=== PATIENT | female | born 2000 | race Hispanic/Latino ===

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

== ENCOUNTER 2019-01-09 18:45 | Emergency (ER) | payer MEDICAID, OTHER ==
[2019-01-09 19:50] VITALS: TEMP 99.4
[2019-01-09] MEDS ORDERED: Sodium Chloride 0.9% 1,000 ML IV STA (20:01)
[2019-01-09 20:22] VITALS: BP 126/78; PULSE 112; RESP 18
--- NOTE | 2019-01-09 20:23 | ED PDOC ---
HPI: Chest Pain Time Seen by Provider: 01/09/19 19:19 Chief Complaint (Nursing): Palpitations Chief Complaint (Provider): Chest Pain and lightheadedness History Per: Patient History/Exam Limitations: no limitations Onset/Duration Of Symptoms: Days Current Symptoms Are (Timing): Still Present Additional Complaint(s): 18 y/o female with a PMHx of DM and Asthma presents to the ED for evaluation of chest pain and lightheadedness. Patient states symptoms have been ongoing for one month but worsened last night. Patient reports of developing a fever, chills and body aches last night as well. At this time, patient denies feeling palpitations, cough, cold, rhinorrhea and sore throat. Patient reports she has not had her period in one year and that she is irregular. Patient states she has not followed up with a [employer]. Patient notes she was told in the past by her physician specialist she was just irregular. PMD: no provider Against Medical Advice - AMA Patient Left Against Medical Advice: The patient declines admission to the hospital and wishes to leave the Emergency Department. This action is against my medical advice. This decision was made with informed refusal. The patient was told that admission to the hospital is necessary. Explanation of the reasons why were discussed. The risks of leaving were explained to the patient and include, but are not limited to, worsening of known or currently unknown conditions, permanent disability and from undiagnosed or untreated conditions. The patient has the capacity to make this informed decision and understands my explanation of the current medical problem and risks of leaving. The patient voluntarily accepts these risks and signed an AMA form documenting our conversation. The patient was given the opportunity to ask questions and reconsider. The patient was encouraged to return to the Emergency Department at any time for further care. Past Medical History Reviewed: Historical Data, Nursing Documentation, Vital Signs Vital Signs: Last Vital Signs Temp 99.4 F 01/09/19 19:49 Pulse 144 H 01/09/19 18:57 Resp 20 01/09/19 18:57 BP 126/92 H 01/09/19 18:57 Pulse Ox 99 01/09/19 18:57 - Medical History PMH: No Chronic Diseases Denies: Diabetes, Hepatitis, HIV, HTN, Seizures, Sexually Transmitted Disease - Surgical History Other surgeries: Colposcopy and dental surgery - Family History Family History: States: Unknown Family Hx - Social History Current smoker - smoking cessation education provided: No Alcohol: None Drugs: Other (marijuana) - Immunization History Hx Tetanus Toxoid Vaccination: Yes - Allergies Allergies/Adverse Reactions: Allergies Allergy/AdvReac Type Severity Reaction Status Date / Time No Known Allergies Allergy Verified 12/04/17 14:38 Review of Systems ROS Statement: Except As Marked, All Systems Reviewed And Found Negative Constitutional: Positive for: Fever, Chills, Other (body aches) ENT: Negative for: Nose Discharge, Throat Pain Cardiovascular: Positive for: Chest Pain. Negative for: Palpitations Respiratory: Negative for: Cough Genitourinary Female: Positive for: Other (irregular menstruation) Neurological: Positive for: Other (lightheadedness) Physical Exam - Reviewed Nursing Documentation Reviewed: Yes Vital Signs Reviewed: Yes - Physical Exam Appears: Positive for: No Acute Distress Head Exam: Positive for: NORMAL INSPECTION (face signs of hirsutism) Skin: Positive for: Warm, Dry Eye Exam: Positive for: EOMI, PERRL ENT: Positive for: Other (dry mucous membranes) Neck: Positive for: Painless ROM, Supple Cardiovascular/Chest: Positive for: Tachycardia (with regular rhythm) Respiratory: Positive for: Normal Breath Sounds. Negative for: Respiratory Distress Gastrointestinal/Abdominal: Positive for: Soft. Negative for: Tenderness Back: Positive for: Normal Inspection. Negative for: Decreased ROM Extremity: Positive for: Normal ROM. Negative for: Deformity Lymphatic: Negative for: Adenopathy Neurological/Psych: Positive for: Alert, Oriented (x3), Mood/Affect (Normal Mood/Somewhat Anxious Affect) - ECG O2 Sat by Pulse Oximetry: 99 (RA) Pulse Ox Interpretation: Normal Medical Decision Making Medical Decision Making: Time: 1956 Impression: Tachycardia and dizziness Differentials include but not limited to dehydration, thyroid disorder, electrolyte abnormality, viral illness and flu. Plan: -- EKG -- Alcohol Serum -- CMP -- Urine Drug Screen -- Free T4 -- Magnesium -- Phosphorus -- T3 -- Thyroid Stimulating Hormone -- ED Urine -- ED Urine Dipstick -- CBC with Differentials -- D Dimer -- PTT -- Prothrombin time -- CXR Two views -- Soidium Chloride IV 1000 mls/hr -- Tylenol 975 mg PO -- IV Insertion Pt requests to leave ER and not have any further evaluation performed. DW pt risks of leaving with otherwise undiagnosed medical condition. Pt aware of risks and wishes to leave anyway. Signed AMA. Advised pt to return to ER at anytime for full evaluation. Scribe Attestation: Documented by Kushal Diaz, acting as a scribe Cara Trejo MD. Provider Scribe Attestation: All medical record entries made by the Scribe were at my direction and personally dictated by me. I have reviewed the chart and agree that the record accurately reflects my personal performance of the history, physical exam, medical decision making, and the department course for this patient. I have also personally directed, reviewed, and agree with the discharge instructions and disposition. Disposition - Clinical Impression Clinical Impression: Tachycardia - Disposition Disposition: Against Medical Advice Disposition Time: 20:00 Condition: UNKNOWN Instructions: Leaving Against Medical Advice
[2019-01-09 20:24] VITALS: O2SAT 99
--- NOTE | 2019-01-10 19:05 | CARD ---
APPROVED REPORT Date of service: 01/09/2019 EKG Measurement Heart [id number] <Conclusion> Sinus tachycardia Rightward axis Borderline ECG
== END 2019-01-09 20:17 | disposition left against medical advice (07) ==
LOC: H.ER 18:45
DX: R00.2 Palpitations (principal)